=== PATIENT | female | born 1965 | race Two or more races ===

== ENCOUNTER 2018-02-09 07:58 | Day surgery (SDC) | payer OTHER ==
[2018-02-09] VITALS (10 sets, daily range): BP systolic 120–163; BP diastolic 56–86
[~2018-02-09] VITALS: Ht 162.6 cm; Wt 63.0 kg
[~2018-02-09 07:58] MED LIST: ASPIR 8181 MG ORAL; METFORMIN HCL1000 M1 ORAL; ceFAZolin 1gm in D5W 55ml IVP ONE; celeBREX 200mg Cap **SURGERY PATIENTS ONLY ORAL ONE; oxyCONTIN 20mg tab ORAL ONE
[2018-02-09] MEDS ORDERED: ATORVASTATIN CA40 MG ORAL (08:50)
[2018-02-09] MEDS ORDERED: BENAZEPRIL HCL10 MG ORAL (08:51)
[2018-02-09] MEDS ORDERED: LR 1000ml 1,000 ML IVLG SCH (10:01)
--- NOTE | 2018-02-09 10:02 | Anethesia Preoperative Eval ---
Anesthesia Pre-op PMH/ROS General Date of Evaluation: Feb 09, 2018 Time of Evaluation: 12:24 Anesthesiologist: Blanka ASA Score: ASA 3 Mallampati Score Class I : Soft palate, uvula, fauces, pillars visible Class II: Soft palate, uvula, fauces visible Class III: Soft palate, base of uvula visible Class IV: Only hard plate visible Mallampati Classification: Class II Surgeon: Odin Diagnosis: R Shoulder Pain Surgical Procedure: R Shoulder Arthroscopy Anesthesia History: none Family History: no anesthesia problems Allergies: Coded Allergies: No Known Allergies (Unverified , 02/08/18) Medications: see eMAR Past Medical History Cardiovascular: Reports: HTN, other - HL Endocrine: Reports: DM Hematology/Immune: Reports: anemia PSxH Narrative: TL Anesthesia Pre-op Phys. Exam Physician Exam Last Vital Signs Date Time Temp Pulse Resp B/P (MAP) Pulse Ox O2 Delivery O2 Flow Rate FiO2 02/09/18 09:14 97.5 76 18 154/86 99 Room Air 97.5 Constitutional: NAD Neurologic: CN 2-12 intact Cardiovascular: RRR Respiratory: CTA Gastrointestinal: S/NT/ND Airway Exam Mallampati Score: Class II MO: full ROM: full Teeth: intact Anesthesia Pre-op A/P Risk Assessment & Plan Assessment: ASA 3 Plan: GA, BIS, R Supraclavicular Block Status Change Before Surgery: No Pre-Antibiotics Dru Gram Ancef IV Given Within 1 Hr of Incision: Yes Time Given: 12:36 Terry Moscoso MD Feb 09, 2018 10:02
[2018-02-09] MEDS ORDERED: oxyCONTIN 20mg tab ORAL ONE (10:13)
[2018-02-09] MEDS ORDERED: celeBREX 200mg Cap **SURGERY PATIENTS ONLY ORAL ONE (10:13)
[2018-02-09] MEDS ORDERED: fentaNYL 100 mcg/2 mL IV PRN (10:15)
[2018-02-09] MEDS ORDERED: oxyCODONE HCL/Acetaminophen 5/325mg ORAL PRN (10:15)
[2018-02-09] MEDS ORDERED: HYDROcodone/Acetamin 7.5/325 tab ORAL PRN (10:15)
[2018-02-09] MEDS ORDERED: Ketorolac 30mg Inj IV PRN ×2 (10:15)
[2018-02-09] MEDS ORDERED: Midazolam 2mg/2ml Inj IVP PRN (10:15)
[2018-02-09] MEDS ORDERED: Labetalol 5mg/ml 20ml vial IV PRN (10:15)
[2018-02-09] MEDS ORDERED: Hydromorphone 0.5mg/0.5ml inj IVP PRN (10:15)
[2018-02-09] MEDS ORDERED: LORazepam Inj 2mg/ml 1ml IV PRN (10:15)
[2018-02-09] MEDS ORDERED: Norco 5mg/325mg tab ORAL PRN ×2 (10:15→18:01)
[2018-02-09] MEDS ORDERED: Metoclopramide 10mg/2ml Inj IVP PRN (10:15)
[2018-02-09] MEDS ORDERED: Atropine Inj 1mg/10ml Syr IV PRN (10:15)
[2018-02-09] MEDS ORDERED: DiphenhydrAMINE 50mg/ml Inj IVP PRN (10:15)
[2018-02-09] MEDS ORDERED: Sodium Chloride 10ml vial INJ ONE (11:35)
[2018-02-09] MEDS ORDERED: Dexamethasone 4mg/ml vial ONE (11:35)
[2018-02-09] MEDS ORDERED: Ropivacaine 5mg/ml Vial 30ml INJ ONE (11:35)
[2018-02-09] MEDS ORDERED: Lidocaine 1% MPF 10mg/ml 5ml ONE (11:35)
[2018-02-09] MEDS ORDERED: Propofol 200mg/20ml IV ONE (11:35)
--- NOTE | 2018-02-09 12:03 | Pre-Procedure Note/Attestation ---
Pre-Procedure Note/Attestation Complete Prior to Procedure Planned Procedure: right Procedure Narrative: shoulder arthroscopy, sad, capsular release Indications for Procedure Pre-Operative Diagnosis: right shoulder impingement/adhesive capsilitis Attestation I attest that I discussed the nature of the procedure; its benefits; risks and complications; and alternatives (and the risks and benefits of such alternatives ), prior to the procedure, with the patient (or the patient's legal sales representative [employer]). I attest that, if there was a reasonable possibility of needing a blood transfusion, the patient (or the patient's legal sales representative [employer]) was given the [facility] standardized written summary, pursuant to the Neeraj Kailash Blood Safety Act ([place] Health and Safety Code # 1645, as amended). I attest that I re-evaluated the patient just prior to the surgery and that there has been no change in the patient's H&P, except as documented below: Brandan Newby MD Feb 09, 2018 12:03
--- NOTE | 2018-02-09 12:03 | Operative Note - PDOC ---
Operative Note Operative Note Pre-op Diagnosis: right shoulder impingement/adhesive capsilitis Procedure: see op report Post-op Diagnosis: same as pre-op plus Operative Findings: consistent w/pre-op dx studies Anesthesia: regional Specimen: none Complications: none Condition: stable Estimated Blood Loss: none Implant(s) used?: No Barndan Newby MD Feb 09, 2018 12:03
[2018-02-09] MEDS ORDERED: EPINEPHrine 1mg/1ml Amp ONE (12:14)
[2018-02-09] MEDS ORDERED: Bupivacaine 0.25% Inj 30ml INJ ONE ×2 (12:14→13:20)
[2018-02-09] MEDS ORDERED: NS Irrig 4000ml IRRIG ONE (12:30)
[2018-02-09] MEDS ORDERED: LR 1000ml ONE (12:30)
--- NOTE | 2018-02-09 12:59 | Immediate Post-Op Evaluation ---
Immediate Post-Op Evalulation Immediate Post-Op Evalulation Procedure: R Shoulder Arthroscopy Date of Evaluation: Feb 09, 2018 Time of Evaluation: 14:25 IV Fluids: 1000 LR Blood Products: 0 Estimated Blood Loss: 7 Urinary Output: 0 Blood Pressure Systolic: 141 Blood Pressure Diastolic: 61 Pulse Rate: 73 Respiratory Rate: 18 O2 Sat by Pulse Oximetry: 100 Temperature (Fahrenheit): 97.1 Pain Score (1-10): 2 Nausea: No Vomiting: No Complications 0 Patient Status: awake, reacts, patent, extubated, none Hydration Status: adequate Dru Gram Ancef IV Given Within 1 Hr of Incision: Yes Time Given: 12:36 Terry Moscoso MD Feb 09, 2018 12:59
--- NOTE | 2018-02-09 13:00 | 48 Hour Post Anesthesia Eval ---
Post Anesthesia Evaluation Procedure: R Shoulder Arthroscopy Date of Evaluation: Feb 09, 2018 Time of Evaluation: 16:34 Blood Pressure Systolic: 162 0: 89 Pulse Rate: 72 Respiratory Rate: 18 Temperature (Fahrenheit): 97.1 O2 Sat by Pulse Oximetry: 100 Airway: patent Nausea: No Vomiting: No Pain Intensity: 1 Hydration Status: adequate Cardiopulmonary Status: Stable Mental Status/LOC: patient returned to baseline Follow-up Care/Observations: 0 Post-Anesthesia Complications: 0 Follow-up care needed: ready to discharge Terry Moscoso MD Feb 09, 2018 13:00
[2018-02-09] MEDS ORDERED: Kenalog-40 1ml Vial ONE (13:20)
[2018-02-09] MEDS ORDERED: Morphine Sulfate PF 10 ML ONE (13:20)
[2018-02-09] MEDS: Ketorolac 30mg Inj ONE ×2 (13:40→13:42)
[2018-02-09] MEDS ORDERED: Tylenol #3 tab (300mg/30mg) ORAL PRN (18:01)
[2018-02-09] MEDS ORDERED: D5 1/2NS 1,000 ML IV SCH (18:01)
--- NOTE | 2018-02-09 22:46 | Operative Note - Dictated ---
DATE OF OPERATION: 02/09/2018 PREOPERATIVE DIAGNOSES: 1. Right shoulder adhesive capsulitis. 2. Right shoulder impingement syndrome/bursitis. POSTOPERATIVE DIAGNOSES: 1. Right shoulder adhesive capsulitis. 2. Right shoulder impingement syndrome/bursitis. 3. Right shoulder full-thickness rotator cuff tear. SURGEON: Brandan Newby M.D. ANESTHESIA: Interscalene with general. INDICATION FOR PROCEDURE: The patient is a pleasant 52-year-old female with significant right shoulder pain. She failed conservative treatment and elected to undergo right shoulder arthroscopy, subacromial decompression, and bursectomy. Initial diagnosis was adhesive capsulitis, therefore, was discussed with the patient. All questions were addressed. DESCRIPTION OF PROCEDURE: After informed consent was obtained, the patient was brought to the operating room and placed the patient under interscalene general anesthesia. The patient was then carefully placed in the beach-chair position. At this point, the shoulder was flexed to approximately 160. Additional ports was marked and manipulated to 180. Shoulder abduction with manipulation was 180. Shoulder abduction and external rotation is 80 and internal rotation is 60. At this point, the camera was placed into the glenohumeral joint. Significant synovitis consistent with adhesive capsulitis was the diagnosis. No significant chondral damage. The anterior labrum appeared to be intact. There was a partial tear along the supraspinatus. This was debrided. Once that was done, the camera was placed into the subacromial space. Complete bursectomy was performed. The undersurface of the acromion was identified. Acromioplasty was started from lateral to medial and completed from posterior to anterior. Once that was done, as the bursectomy was being completed, there was evidence of a full-thickness rotator cuff tear. Therefore, 2-0 arthroscopic anchors were then placed. Once that was done, the instruments were removed. Portal sites were closed using 3-0 Monocryl sutures. Steri-Strips and a sterile dressing were applied. The patient was awoken and taken to the recovery room with stable vital signs. ESTIMATED BLOOD LOSS: None. COMPLICATIONS: None. SPECIMENS: None. IMPLANTS: Two [employer] anchors. Brandan Newby M.D. DR: AUDRA JOB#: [id number] CC:
== END 2018-02-09 16:40 | disposition home or self-care (01) ==
LOC: SUR 07:58
DX: M75.01 Adhesive capsulitis of right shoulder (principal); M75.41 Impingement syndrome of right shoulder; M75.121 Complete rotator cuff tear or rupture of right shoulder, not specified as traumatic; I10 Essential (primary) hypertension; E11.9 Type 2 diabetes mellitus without complications
CPT/HCPCS: 29827; 82962; C1713; J0171; J0690; J1100; J1885; J2250; J2274; J2405; J2704; J2795; J3301; J3490; J7120; 94003; 94150